=== PATIENT | female | born 1985 | race Caucasian/White ===

== ENCOUNTER 2025-04-28 06:59 | Day surgery (SDC) | payer OTHER ==
[2025-04-20 16:33] VITALS: BMI 21.9
[2025-04-28 07:13] VITALS: RESP 18
[2025-04-28] MEDS ORDERED: PROPOFOL 80 ML ONE (07:44)
[2025-04-28 08:28] VITALS: TEMP 98
[2025-04-28 08:47] VITALS: BP 100/68; PULSE 61
== END 2025-04-28 08:50 | disposition home or self-care (01) ==
LOC: FASU-ENDO 06:59
PROVIDERS: ATTEND Internal Medicine Gastroenterology
PROC: 0DJD8ZZ Inspection of Lower Intestinal Tract, Via Natural or Artificial Opening Endoscopic (ICD-10-PCS; principal; 2025-04-28 08:00)
DX: R93.3 Abnormal findings on diagnostic imaging of other parts of digestive tract (principal)
CPT/HCPCS: 81025